=== PATIENT | male | born 1980 | race Caucasian/White ===

== ENCOUNTER 2023-08-05 22:32 | Emergency (ER) | payer MEDICAID, OTHER ==
[~2023-08-05] VITALS: Ht 180.3 cm; Wt 87.0 kg
[2023-08-05 22:45] VITALS: BP 118/74; PULSE 80; RESP 18; TEMP 98.4; O2SAT 99
[2023-08-05] MEDS ORDERED: KETOROLAC 60MG/2ML VIAL IM STA (22:50)
== END 2023-08-06 00:53 | disposition left against medical advice (07) ==
LOC: ER 22:32
DX: Z53.21 Procedure and treatment not carried out due to patient leaving prior to being seen by health care provider (principal)
CPT/HCPCS: 73090; 99281